=== PATIENT | female | born 1965 | race African-American/Black ===

== ENCOUNTER 2017-07-31 16:10 | Emergency (ER) | payer OTHER ==
[2017-07-31 16:28] VITALS: BP 111/72; PULSE 96; TEMP 98; BMI 43.5
[2017-07-31] MEDS ORDERED: DIPHTH,PERTUSS(ACELL),TET 0.5 ML DISP.SYRIN IM ONE (16:29)
--- NOTE | 2017-07-31 16:29 | PDOC ---
Rapid Medical Evaluation Time Seen by Provider: 07/31/17 16:27 Medical Evaluation: Allergies Allergy/AdvReac Type Severity Reaction Status Date / Time latex [Latex] Allergy Intermediate Hives Verified 07/31/17 16:26 07/31/17 16:28 I have performed a brief in-person evaluation of this patient. The patient presents with a chief complaint of: Thumb laceration Pertinent physical exam findings: Laceration to left thumb I have ordered the following: tetanus booster The patient will proceed to the ED for further evaluation. Discharge Disposition - Diagnosis Laceration - Referrals - Patient Instructions - Post Discharge Activity
--- NOTE | 2017-07-31 17:37 | PDOC ---
History of Present Illness - General Chief Complaint: Laceration Stated Complaint: LACERATION Time Seen by Provider: 07/31/17 16:27 History Source: Patient Exam Limitations: No Limitations - History of Present Illness Initial Comments: 07/31/17 17:37 51-year-old female presents to the ED with complaints of laceration to the left thumb which she sustained from a knife while trying to cut open a package. Patient states is not up-to-date and tetanus and denies history of immunosuppression including diabetes. Timing/Duration: 1-3 hours Severity: mild Associated Symptoms: reports: denies symptoms Past History - Travel Traveled outside of the country in the last 30 days: No - Past Medical History Allergies/Adverse Reactions: Allergies Allergy/AdvReac Type Severity Reaction Status Date / Time latex [Latex] Allergy Intermediate Hives Verified 07/31/17 16:26 Home Medications: Ambulatory Orders Albuterol Sulfate Inhaler - [Ventolin HFA Inhaler -] 1 - 2 inh PO Q4H PRN Budesonide/Formeterol Fumarate [SYMBICORT 160/4.5mcg -] 2 inh IH BID PRN levoFLOXacin [Levaquin -] 500 mg PO DAILY #7 tablet 05/29/16 metroNIDAZOLE [Flagyl -] 250 mg PO TID #21 tablet 05/29/16 Anemia: No Asthma: Yes Cancer: No Cardiac Disorders: No CVA: No COPD: No CHF: No Dementia: No Diabetes: No GI Disorders: Yes (Heartburn) Disorders: No HTN: No Hypercholesterolemia: Yes Liver Disease: No Seizures: No Thyroid Disease: No - Surgical History Abdominal Surgery: No Appendectomy: No Cardiac Surgery: No Cholecystectomy: Yes Lung Surgery: No Neurologic Surgery: No Orthopedic Surgery: No - Immunization History Immunization Up to Date: Yes - Suicide/Smoking/Psychosocial Hx Smoking Status: No Smoking History: Never smoked Have you smoked in the past 12 months: No Number of Cigarettes Smoked Daily: 0 Cigars Per Day: 0 Hx Alcohol Use: Yes (SOCIAL) Drug/Substance Use Hx: No Substance Use Type: None Hx Substance Use Treatment: No Patient Lives Alone: No Lives with/in: spouse/SO Review of Systems - Review of Systems Able to Perform ROS?: Yes Integumentary: Yes: See HPI *Physical Exam - Vital Signs Last Vital Signs Temp Pulse Resp BP Pulse Ox 98.0 F 96 H 20 111/72 98 07/31/17 16:27 07/31/17 16:27 07/31/17 16:27 07/31/17 16:27 07/31/17 16:27 - Physical Exam General Appearance: Yes: Nourished, Appropriately Dressed. No: Apparent Distress Integumentary: positive: Normal Color, Warm, Moist, Other (noted superficial laceration to latreal aspect of left 1 st fingertip) Neurologic: positive: Motor Strength 5/5 (FROM of left 1st digit) Procedures - Laceration/Wound Repair Left Finger Wound Length: to 2.5 cm Wound's Depth, Shape: superficial Irrigated w/ Saline: Yes Wound Repaired With: Dermabond ED Treatment Course - Medications Given in the ED: ED Medications Discontinued Medications Generic Name Dose Route Start Last Admin Trade Name Freq PRN Reason Stop Dose Admin Diphtheria/Tetanus/Acell Pertussis 0.5 ml 07/31/17 16:29 07/31/17 17:19 Boostrix - IM 07/31/17 16:30 0.5 ml .ONCE ONE Administration Medical Decision Making - Medical Decision Making 07/31/17 17:39 Pt with laceration to left 1s t digit requiring dermabond. Pt ordered for tdap *DC/Admit/Observation/Transfer Diagnosis at time of Disposition: Laceration - Discharge Dispostion Disposition: HOME Condition at time of disposition: Good - Referrals Referrals: Zia Torres MD [Primary Care Provider] - - Patient Instructions Printed Discharge Instructions: DI for Laceration Repair Additional Instructions: Keep area clean and dry covering for the next 5 days and allow glue to fall off on its own. If you develop any redness or swelling or drainage, please return to the ED as this may be a sign of infection. - Post Discharge Activity
== END 2017-07-31 17:38 | disposition home or self-care (01) ==
LOC: JERFT 16:10
PROC: 3E0234Z Introduction of Serum, Toxoid and Vaccine into Muscle, Percutaneous Approach (ICD-10-PCS; principal; 2017-07-31)
PROC: 0HQGXZZ Repair Left Hand Skin, External Approach (ICD-10-PCS; 2017-07-31)
DX: S61.012A Laceration without foreign body of left thumb without damage to nail, initial encounter (principal); W26.0XXA Contact with knife, initial encounter; Y93.89 Activity, other specified; Y92.89 Other specified places as the place of occurrence of the external cause; Y99.8 Other external cause status
CPT/HCPCS: 90715; 99281-25

== ENCOUNTER 2019-02-25 20:35 | Emergency (ER) | payer OTHER ==
[2019-02-25 21:00] VITALS: BMI 43.5
--- NOTE | 2019-02-25 21:00 | PDOC ---
Rapid Medical Evaluation Medical Evaluation: Allergies Allergy/AdvReac Type Severity Reaction Status Date / Time latex [Latex] Allergy Intermediate Hives Verified 07/31/17 16:26 I have performed a brief in-person evaluation of this patient. The patient presents with a chief complaint of: hx cholecystectomy 2011, presents with RUQ/epigastric pain x 2 days along with nausea; denies vomiting, urinary complaints, fever; states feels like gallbladder pain Pertinent physical exam findings: In NAD, +epigastric and RUQ tenderness; no CVA tenderness I have ordered the following: Labs The patient will proceed to the ED for further evaluation. 02/25/19 20:57 Discharge Disposition - Referrals Referrals: Zai Torres MD [Primary Care Provider] - - Patient Instructions - Post Discharge Activity
[2019-02-25 21:29] LABS: PH,URINE 5.5 (5.0-8.0); URINE APPEARANCE CLEAR; URINE BILIRUBIN NEGATIVE (NEGATIVE); URINE COLOR YELLOW; URINE GLUCOSE (UA) NEGATIVE (NEGATIVE); URINE KETONE TRACE (NEGATIVE); URINE LEUK ESTERASE NEGATIVE (NEGATIVE); URINE NITRITE NEGATIVE (NEGATIVE); URINE PROTEIN NEGATIVE (NEGATIVE)
[2019-02-25 21:30] LABS: BASO % 0.9 % (0-2.0); EOS % 2.2 % (0-4.5); HEMATOCRIT 39.7 % (32.4-45.2); HEMOGLOBIN 13.5 GM/dL (10.7-15.3); LYMPH % 43.8 % (8-40); MEAN CELL VOLUME 91.3 fl (80-96); MEAN PLT VOLUME 8.4 fl (7.5-11.1); MONO % 6.4 % (3.8-10.2); NEUT % 46.7 % (42.8-82.8); PLATELET COUNT 371 K/MM3 (134-434); RBC 4.35 M/mm3 (3.60-5.2); RDW 13.5 % (11.6-15.6); WHITE BLOOD COUNT 8.4 K/mm3 (4.0-10.0)
--- NOTE | 2019-02-25 21:51 | PDOC ---
Attending Attestation - Resident Resident Name: Timothy Roque - ED Attending Attestation I have performed the following: I have examined & evaluated the patient, The case was reviewed & discussed with the resident, I agree w/resident's findings & plan - HPI HPI: 02/26/19 02:51 see resident hpi - Physicial Exam PE: 02/26/19 02:51 agree with resident exam - Medical Decision Making 02/26/19 02:52 agree with resident exam
[2019-02-25 22:01] LABS: ALBUMIN 3.8 g/dl (3.4-5.0); BILIRUBIN,TOTAL 0.4 mg/dL (0.2-1); BLOOD UREA NITROGEN 8.4 mg/dL (7-18); CREATININE 0.7 mg/dL (0.55-1.3); POTASSIUM 3.9 mmol/L (3.5-5.1); TOT PROT 7.4 g/dl (6.4-8.2)
[2019-02-25] MEDS ORDERED: RANITIDINE HCL 150 MG TABLET (FP) PO ONE (23:07)
[2019-02-25] MEDS ORDERED: ONDANSETRON 4 MG TABLET PO ONE (23:07)
--- NOTE | 2019-02-25 23:08 | PDOC ---
History of Present Illness - General Chief Complaint: Pain Stated Complaint: R/O GALLSTONES Time Seen by Provider: 02/25/19 20:57 - History of Present Illness Initial Comments: 02/25/19 23:02 53 yo F with h/o cholecystectomy, asthma, who p/w epigastria and RUQ abdominal pain, nausea. Patient reports 2 days of intermittent, worsening, epigastria, spasmodic, crampy pain, with postprandial pain. + decreased PO intake. Also endorses nausea without vomiting. Also reports 3 yellow colored stools per day x 1 day. Report similar presentation of symptoms x 2011 with subsequent cholecystectomy. Denies recent travels, sick contacts, hiking, camping. Pain not improved with Tylenol. Patient denies NICHOLAS, vision change, palpitations, cough, wheezing, orthopena, PND , leg swelling/pain, F,C, CP, SOB, vaginal bleeding, pelvic pain, urinary complaints, hematuria, BPR, diarrhea, constipation, lightheadedness, weakness, sensory changes. PMHx: as noted above ROS: as noted SHx: Denies Etoh, IVDA, tobacco use Allergies: latex allergy Past History - Past Medical History Allergies/Adverse Reactions: Allergies Allergy/AdvReac Type Severity Reaction Status Date / Time latex [Latex] Allergy Intermediate Hives Verified 02/25/19 21:00 Home Medications: Ambulatory Orders Albuterol Sulfate Inhaler - [Ventolin HFA Inhaler -] 1 - 2 inh PO Q4H PRN Budesonide/Formeterol Fumarate [SYMBICORT 160/4.5mcg -] 2 inh IH BID PRN Ranitidine [Zantac -] 150 mg PO BID PRN #30 tablet MDD 2 tab 02/25/19 Amox-Tr/K Cl [Augmentin - 875Mg Tablet] 1 tab PO BID #14 tablet 02/26/19 Anemia: No Asthma: Yes Cancer: No Cardiac Disorders: No CVA: No COPD: No CHF: No Dementia: No Diabetes: No GI Disorders: Yes (Heartburn) Disorders: No HTN: No Hypercholesterolemia: Yes Liver Disease: No Seizures: No Thyroid Disease: No - Surgical History Abdominal Surgery: No Appendectomy: No Cardiac Surgery: No Cholecystectomy: Yes Lung Surgery: No Neurologic Surgery: No Orthopedic Surgery: No - Immunization History Immunization Up to Date: Yes - Suicide/Smoking/Psychosocial Hx Smoking Status: No Smoking History: Never smoked Have you smoked in the past 12 months: No Number of Cigarettes Smoked Daily: 0 Cigars Per Day: 0 Information on smoking cessation initiated: No Hx Alcohol Use: No Drug/Substance Use Hx: No Substance Use Type: None Hx Substance Use Treatment: No Review of Systems - Review of Systems Comments:: 02/25/19 23:08 GENERAL/CONSTITUTIONAL: No fever or chills. No weakness. HEAD, EYES, EARS, NOSE AND THROAT: No change in vision. No ear pain or discharge. No sore throat. CARDIOVASCULAR: No chest pain or shortness of breath RESPIRATORY: No cough, wheezing, or hemoptysis. GASTROINTESTINAL: + abdominal pain, nausea. No vomiting, constipation. GENITOURINARY: No dysuria, frequency, or change in urination. MUSCULOSKELETAL: No joint or muscle swelling or pain. No neck or back pain. SKIN: No rash NEUROLOGIC: No headache, vertigo, loss of consciousness, or change in strength/ sensation. ENDOCRINE: No increased thirst. No abnormal weight change HEMATOLOGIC/LYMPHATIC: No anemia, easy bleeding, or history of blood clots. ALLERGIC/IMMUNOLOGIC: No hives or skin allergy. *Physical Exam - Vital Signs Last Vital Signs Temp Pulse Resp BP Pulse Ox 98.3 F 96 H 18 159/97 98 02/25/19 20:58 02/25/19 20:58 02/25/19 20:58 02/25/19 20:58 02/25/19 20:58 - Physical Exam Comments: 02/25/19 23:09 GENERAL: Awake, alert, and fully oriented, in no acute distress HEAD: No signs of trauma, normocephalic, atraumatic EYES: PERRLA, EOMI, sclera anicteric, conjunctiva clear ENT: Hearing grossly normal, nares patent, oropharynx clear without exudates. Moist mucosa NECK: Normal ROM, supple, no lymphadenopathy, JVD, or masses LUNGS: No distress, speaks full sentences, clear to auscultation bilaterally HEART: Regular rate and rhythm, normal S1 and S2, no murmurs, rubs or gallops, peripheral pulses normal and equal bilaterally. ABDOMEN: + RUQ, midadbominal, and epigastric ttp. Soft, NDS, normoactive bowel sounds. No guarding, no rebound. No masses. Neg CVA ttp. EXTREMITIES : Normal inspection, Normal range of motion, no edema. No clubbing or cyanosis NEUROLOGICAL: Cranial nerves II through XII grossly intact. Normal speech, normal gait, no focal sensorimotor deficits SKIN: Warm, Dry, normal turgor, no rashes or lesions noted ED Treatment Course - LABORATORY CBC & Chemistry Diagram: 02/25/19 21:14 02/25/19 21:14 - ADDITIONAL ORDERS Additional order review: Laboratory Results 02/25/19 02/25/19 21:14 21:14 Sodium 138 Potassium 3.9 Chloride 105 Carbon Dioxide 27 Anion Gap 6 L BUN 8.4 Creatinine 0.7 Est GFR (CKD-EPI)AfAm 116.27 Est GFR (CKD-EPI)NonAf 100.32 Random Glucose 98 Calcium 9.0 Total Bilirubin 0.4 AST 14 L ALT 21 Alkaline Phosphatase 75 Total Protein 7.4 Albumin 3.8 Lipase 87 Urine Color Yellow Urine Appearance Clear Urine pH 5.5 Ur Specific [place] 1.030 Urine Protein Negative Urine Glucose (UA) Negative Urine Ketones Trace H Urine Blood Negative Urine Nitrite Negative Urine Bilirubin Negative Urine Urobilinogen 1.0 Ur Leukocyte Esterase Negative 02/25/19 21:14 RBC 4.35 MCV 91.3 MCHC 34.0 RDW 13.5 MPV 8.4 Neutrophils % 46.7 D Lymphocytes % 43.8 H Monocytes % 6.4 Eosinophils % 2.2 Basophils % 0.9 - RADIOLOGY Radiology Studies Ordered: 02/25/19 23:19 [facility] Name: [facility] DEPARTMENT OF RADIOLOGY Phys: Jewel Ruffin : 1965 Age: 53 Sex: F [facility] Acct : [id number] Loc: [address] Exam Date: 02/25/19 Status: [facility] [place] [address] Unit Number: [id number] EXAM#: TYPE/EXAM: RESULT: [id number] US/ABDOMEN US -LIMITED HISTORY PROVIDED: Right upper quadrant pain. Real time examination of the abdomen demonstrates the following: The gallbladder has been removed. There is no evidence of intra or extrahepatic biliary duct dilatation. The liver is normal in size. It is hyperechoic in texture consistent with diffuse fatty infiltration. No discrete intrahepatic masses are identified. Hepatopedal flow is documented within the main portal vein. The pancreas is poorly visualized due to overlying bowel gas. There is no evidence of hydronephrosis or acute abnormalities of the right kidney. There is no evidence of AAA. The IVC is patent. IMPRESSION: Diffuse fatty infiltration of the liver. Reported By: Gilberto Dale MD 02/25/192236 JEWEL RUFFIN Technologist: Kamilla Biswas Transcribed Date/Time: 02/25/192236 Truck Assembler: Gilberto Dale Printed Date/Time: By: 02/26/19 02:31 Patient Information: : 1965 Order Type: Preliminary Name: KINGA MORALES Sex: F Study Description: CT ABDOMEN AND PELVIS Modality: CT Location: [facility] Referring Physician: MOHSEN CHOPRA Comments: Lori Abdullahi MD wrote on Feb 26, 2019 at 02:18 AM: Referring Physician: MOHSEN CHOPRA Patient Name: AGUILAR DONATO THIS IS A PRELIMINARY REPORT FROM [facility] DATE OF SERVICE: 2019-02-26 00:53:43 IMAGES: [id number] EXAM: CT ABDOMEN AND PELVIS WITH CONTRAST 1.9 cm left ovarian cyst, advise followup pelvic ultrasound . Hysterectomy Acute diverituclitis distal descending colon. No abscess, bowel obstruction, free fluid or free air. Normal appendix. Unremarkable pancreas and kidneys Cholecystectomy 6 cm lobulated umbilical hernia containing fat CONFIDENTIALITY NOTICE: This information is intended only for the use of the recipient(s) named above. If you are not the intended recipient, or a person responsible for delivering it to the intended recipient, you are hereby notified that any disclosure, copying, distribution or use of any of the information contained in or attached to this transmission is STRICTLY PROHIBITED. If you have received this transmission in error, please immediately notify Imaging Imaging Tech and destroy the original transmission and its attachments without saving them in any manner [address] [facility] [address] [place] [address] Phone: [phone]) Fax: Email: [email or web address] Patient Information: : 1965 Order Type: Preliminary Name: KINGA MORALES Sex: F Study Description: CT ABDOMEN AND PELVIS Modality: CT Location: [facility] Referring Physician: MOHSEN CHOPRA One or more of the following dose reduction techniques were used: automated exposure control, adjustment of the mA and/or kV according to patient size, use of iterative reconstructive technique. THIS DOCUMENT HAS BEEN ELECTRONICALLY SIGNED Lori Abdullahi M.D. 02/26/2019 02:17 LOIDA Oates Please call Imaging Imaging Tech [phone] ([phone]) with questions. Lori Abdullahi MD Medical Decision Making - Medical Decision Making 02/25/19 23:10 53 yo F with h/o cholecystectomy, asthma, who p/w epigastria and RUQ abdominal pain, nausea. HR 96, vitals otherwise wnl, AF, A&OX4. Physical exam notable for epigastria and RUQ ttp. ACS/MN r/o. Will evaluate for pancreatitis, biliary dz. , colitis, appendicitis, enteritis. Will consider malabsorption disorder, gastroparesis. Will treat with anti-emetic, analgesic, control, reassess. Ed Course: Buddy Celis 02/25/19 23:20 GB U/S: IMPRESSION: Diffuse fatty infiltration of the liver. 02/25/19 23:20 Laboratory Tests 02/25/19 02/25/19 02/25/19 21:14 21:14 21:14 WBC 8.4 Hgb 13.5 Hct 39.7 Plt Count 371 Sodium 138 Potassium 3.9 BUN 8.4 Creatinine 0.7 Total Bilirubin 0.4 AST 14 L ALT 21 Alkaline Phosphatase 75 Lipase 87 Urine Color Yellow Urine Ketones Trace H Urine Nitrite Negative Ur Leukocyte Esterase Negative Patient tolerating PO intake Pain improved 02/26/19 00:37 EKG: NSR with absent SOMAN, STD. Nml interval duration and axis. Poor R wave progression. Absent Q waves. Similar to prior 02/26/19 02:32 CT AP : Acute diverituclitis distal descending colon. 02/26/19 02:34 Pt. diverticulitis treated with Augmentin Patient tolerating PO intake, 0/4 SIRS criteria, WBC 8.4, non toxic appearing Patient stable for d/c with return precautions Augmentin sent to pharmacy *DC/Admit/Observation/Transfer Diagnosis at time of Disposition: Epigastric abdominal pain - Discharge Dispostion Condition at time of disposition: Stable Decision to Admit order: No - Prescriptions Prescriptions: Ranitidine [Zantac -] 150 mg PO BID PRN #30 tablet MDD 2 tab PRN Reason: Pain - Referrals Referrals: Zia Torres MD [Primary Care Provider] - Jono Oneill MD [Staff Physician] - - Patient Instructions Printed Discharge Instructions: DI for Epigastric Pain Additional Instructions: Please return to the emergency department with any new or worsening symptoms or concerns. Please follow up with your ergonomics engineer and primary care physician within 72 hours. - Post Discharge Activity
[2019-02-25] MEDS ORDERED: ONDANSETRON *ODT* 4 MG TABLET ONE (23:13)
[2019-02-25 23:40] VITALS: BP 154/98; PULSE 90; TEMP 98
[2019-02-25] MEDS ORDERED: SODIUM CHLORIDE 1,000 ML IV STA (23:50)
[2019-02-25] MEDS ORDERED: ACETAMINOPHEN 1000 MG/100 ML VIAL (NON FORMULARY) IVPB ONE (23:52)
[2019-02-26] MEDS ORDERED: ACETAMINOPHEN INJECTION 100 ML IVPB ONE (00:11)
[2019-02-26] MEDS ORDERED: AMOX TR/POT CLAV 875MG/125MG TABLETS (FP) PO ONE (02:33)
[2019-02-26] MEDS ORDERED: AMOX TR/POT CLAV 875MG/125MG TABLETS (FP) ONE (02:51)
--- NOTE | 2019-02-26 11:26 | EKG ---
Test Reason : Blood Pressure : / mmHG Vent. Rate : 085 BPM Atrial Rate : 085 BPM P-R Int : 166 ms QRS Dur : 072 ms QT Int : 368 ms P-R-T Axes : 051 016 029 degrees QTc Int : 437 ms NORMAL SINUS RHYTHM ANTERIOR INFARCT , AGE UNDETERMINED ABNORMAL ECG WHEN COMPARED WITH ECG OF 02-JAN-2012 17:10, ANTERIOR INFARCT IS NOW PRESENT Confirmed by BETINA SHIRLEY, LINDY ([id number]) on 02/26/2019 11:25:43 AM Referred By: Confirmed By:LINDY MOFFETT MD
== END 2019-02-26 03:40 | disposition home or self-care (01) ==
LOC: JER 20:35
PROC: 3E0337Z Introduction of Electrolytic and Water Balance Substance into Peripheral Vein, Percutaneous Approach (ICD-10-PCS; principal; 2019-02-25)
PROC: 3E033NZ Introduction of Analgesics, Hypnotics, Sedatives into Peripheral Vein, Percutaneous Approach (ICD-10-PCS; 2019-02-25)
DX: K57.92 Diverticulitis of intestine, part unspecified, without perforation or abscess without bleeding (principal)
CPT/HCPCS: 36415; 74177-TC; 76705-TC; 80053; 81003; 83690; 84484; 85025; 93005; 93010; 99283-25; J0131; J7030

== ENCOUNTER 2019-03-02 12:05 | Emergency (ER) | payer OTHER ==
[2019-03-02 12:21] VITALS: BMI 43.5
--- NOTE | 2019-03-02 13:51 | PDOC ---
History of Present Illness - General Chief Complaint: Pain Stated Complaint: REVISIT / WORSEN SYMPTOMS Time Seen by Provider: 03/02/19 13:49 History Source: Patient - History of Present Illness Severity: moderate Associated Symptoms: reports: nausea/vomiting. denies: fever/chills Past History - Past Medical History Allergies/Adverse Reactions: Allergies Allergy/AdvReac Type Severity Reaction Status Date / Time latex [Latex] Allergy Intermediate Hives Verified 03/02/19 12:21 Home Medications: Ambulatory Orders Albuterol Sulfate Inhaler - [Ventolin HFA Inhaler -] 1 - 2 inh PO Q4H PRN Budesonide/Formeterol Fumarate [SYMBICORT 160/4.5mcg -] 2 inh IH BID PRN Ranitidine [Zantac -] 150 mg PO BID PRN #30 tablet MDD 2 tab 02/25/19 Amox-Tr/K Cl [Augmentin - 875Mg Tablet] 1 tab PO BID #14 tablet 02/26/19 Ciprofloxacin HCl [Cipro] 500 mg PO BID #14 tablet 03/02/19 metroNIDAZOLE [Flagyl -] 500 mg PO TID #21 tablet 03/02/19 Anemia: No Asthma: Yes Cancer: No Cardiac Disorders: No CVA: No COPD: No CHF: No Dementia: No Diabetes: No GI Disorders: Yes (Heartburn) Disorders: No HTN: No Hypercholesterolemia: Yes Liver Disease: No Seizures: No Thyroid Disease: No - Surgical History Abdominal Surgery: No Appendectomy: No Cardiac Surgery: No Cholecystectomy: Yes Lung Surgery: No Neurologic Surgery: No Orthopedic Surgery: No - Immunization History Immunization Up to Date: Yes - Psycho Social/Smoking Cessation Hx Smoking Status: No Smoking History: Never smoked Have you smoked in the past 12 months: No Number of Cigarettes Smoked Daily: 0 Cigars Per Day: 0 Hx Alcohol Use: No Drug/Substance Use Hx: No Substance Use Type: None Hx Substance Use Treatment: No Review of Systems - Review of Systems Constitutional: No: Chills, Fever ABD/GI: Yes: Nausea, Abdominal cramping. No: Blood Streaked Bowels, Constipated , Rectal Bleeding, Vomiting, Tarry Stools : No: Burning, Dysuria, Flank Pain, Hematuria *Physical Exam - Vital Signs Last Vital Signs Temp Pulse Resp BP Pulse Ox 98.7 F 83 18 143/82 99 09/22/19 12:19 03/02/19 12:19 03/02/19 12:19 03/02/19 12:19 03/02/19 12:19 - Physical Exam General Appearance: Yes: Appropriately Dressed, Mild Distress HEENT: positive: Normal Voice Neck: positive: Supple Respiratory/Chest: negative: Respiratory Distress Gastrointestinal/Abdominal: positive: Normal Bowel Sounds, Tender (diffusely, notably to epigastrium). negative: Distended, Guarding, Rebound Musculoskeletal: negative: CVA Tenderness Integumentary: positive: Dry, Warm Neurologic: positive: Fully Oriented, Alert, Normal Mood/Affect ED Treatment Course - LABORATORY CBC & Chemistry Diagram: 03/02/19 14:15 03/02/19 14:15 Medical Decision Making - Medical Decision Making 03/02/19 13:51 53 yo F, morbidly obese, asthma, s/p kalina, gastritis vs GERD, was on omeprazole in past, no recent scope, returns with ongoing diffuse abd pain with nausea and loose stools. Patient was seen for same in ED 6 days ago and diagnosed with uncomplicated sigmoid diverticulitis (to distal descending/ proximal colon)and discharged with Augmentin. Was also started on Zantac as patient was also complaining of upper abdominal epigastric pain with excessive belching that feels like her gastritis. Patient states symptoms persist. No vomiting, bloody stools, melena, fever or chills. see exam Dx w/ uncomplicated sigmoid diverticulitis 6 days ago Not improving w/ augmentin No f/c Stable w/ diffuse abd ttp on exam -pain control -IV abx -IVF -labs -?rpt CT Epigastric pain/excessive belching Similar to gastritis/GERD per pt Was on PPI in past Now on zantac w/ no relief No recent scope No melena +epigastric ttp on exam -trial of GI cocktail/reassess 03/02/19 15:45 Pt improved w/ meds. Labs unremarkable. Signed out to REBEKA Curiel pending CT. If CT neg, can m/l be discharged w/ GI cocktail and GI f/u, otherwise if CT remonstrates diverticulitis, may need admission/to discuss w/ ED attg *DC/Admit/Observation/Transfer Diagnosis at time of Disposition: Diverticulitis Ovarian cyst Qualifiers: Laterality: left Qualified Code(s): N83.202 - Unspecified ovarian cyst, left side - Discharge Dispostion Disposition: HOME Condition at time of disposition: Stable - Prescriptions Prescriptions: Ciprofloxacin HCl [Cipro] 500 mg PO BID #14 tablet metroNIDAZOLE [Flagyl -] 500 mg PO TID #21 tablet - Referrals Referrals: Zia Torres MD [Primary Care Provider] - Jono Oneill MD [Staff Physician] - Blake Strickland MD [Staff Physician] - - Patient Instructions Printed Discharge Instructions: DI for Diverticulitis, DI for Ovarian Cyst Additional Instructions: Please discontinue the Augmentin and take the new antibiotics as prescribed. Complete the entire course of antibiotics even if your symptoms improve. Follow up with OBGYN for continued monitoring of your ovarian cyst. If you develop any sudden, severe pain to your L side, fever, chills, nausea, vomiting , or diarrhea, please return to the ER immediately. - Post Discharge Activity Forms/Work/School Notes: Back to Work Discharge - Discharge Information Problems reviewed: Yes Clinical Impression/Diagnosis: Diverticulitis Ovarian cyst Qualifiers: Laterality: left Qualified Code(s): N83.202 - Unspecified ovarian cyst, left side Condition: Stable Disposition: HOME - Additional Discharge Information Prescriptions: Ciprofloxacin HCl [Cipro] 500 mg PO BID #14 tablet metroNIDAZOLE [Flagyl -] 500 mg PO TID #21 tablet - Follow up/Referral Referrals: Zia Torres MD [Primary Care Provider] - Jono Oneill MD [Staff Physician] - Blake Strickland MD [Staff Physician] - - Patient Discharge Instructions Patient Printed Discharge Instructions: DI for Diverticulitis, DI for Ovarian Cyst Additional Instructions: Please discontinue the Augmentin and take the new antibiotics as prescribed. Complete the entire course of antibiotics even if your symptoms improve. Follow up with OBGYN for continued monitoring of your ovarian cyst. If you develop any sudden, severe pain to your L side, fever, chills, nausea, vomiting , or diarrhea, please return to the ER immediately. - Post Discharge Activity Work/Back to School Note: Back to Work
[2019-03-02] MEDS ORDERED: CIPROFLOXACIN 400 MG/D5W 400 MG/200 ML IVPB IVPB ONE (13:52)
[2019-03-02] MEDS ORDERED: morphine CARPU-JECT 4 MG/1 ML DISP.SYRIN IVPUSH ONE (13:53)
[2019-03-02] MEDS ORDERED: ONDANSETRON 4 MG/2 ML VIAL IVPUSH ONE (13:54)
[2019-03-02] MEDS ORDERED: FAMOTIDINE 20 MG/50 ML IVPB 20 MG/50 ML MG IVPB ONE ×2 (13:54→14:04)
[2019-03-02] MEDS ORDERED: SODIUM CHLORIDE 1,000 ML IV STA (13:55)
[2019-03-02] MEDS ORDERED: ONDANSETRON 4 MG/2 ML VIAL ONE (14:04)
[2019-03-02] MEDS ORDERED: morphine SULFATE 4 MG/ML VIAL ONE (14:04)
[2019-03-02 14:42] LABS: PH,URINE 5.5 (5.0-8.0); URINE APPEARANCE CLEAR; URINE BILIRUBIN NEGATIVE (NEGATIVE); URINE COLOR YELLOW; URINE GLUCOSE (UA) NEGATIVE (NEGATIVE); URINE KETONE TRACE (NEGATIVE); URINE LEUK ESTERASE NEGATIVE (NEGATIVE); URINE NITRITE NEGATIVE (NEGATIVE); URINE PROTEIN NEGATIVE (NEGATIVE); URINE UROBILINOGEN 0.2 mg/dL (0.2-1.0)
[2019-03-02 14:44] LABS: BASO % 0.5 % (0-2.0); EOS % 2.1 % (0-4.5); HEMATOCRIT 42.8 % (32.4-45.2); HEMOGLOBIN 14.7 GM/dL (10.7-15.3); LYMPH % 46.8 % (8-40); MCH 31.3 pg (25.7-33.7); MCHC 34.4 g/dl (32.0-36.0); MEAN CELL VOLUME 90.9 fl (80-96); MEAN PLT VOLUME 8.5 fl (7.5-11.1); MONO % 7.5 % (3.8-10.2); NEUT % 43.1 % (42.8-82.8); PLATELET COUNT 382 K/MM3 (134-434); RBC 4.71 M/mm3 (3.60-5.2); RDW 13.8 % (11.6-15.6); WHITE BLOOD COUNT 7.1 K/mm3 (4.0-10.0)
[2019-03-02 14:59] LABS: ALBUMIN 3.8 g/dl (3.4-5.0); BILIRUBIN,TOTAL 0.4 mg/dL (0.2-1); BLOOD UREA NITROGEN 6.2 mg/dL (7-18); CALCIUM 9.5 mg/dL (8.5-10.1); CREATININE 0.8 mg/dL (0.55-1.3); POTASSIUM 5.1 mmol/L (3.5-5.1); TOT PROT 7.6 g/dl (6.4-8.2)
[2019-03-02 15:46] VITALS: PULSE 80; TEMP 97.8
--- NOTE | 2019-03-02 16:33 | PDOC ---
*Physical Exam - Vital Signs Last Vital Signs Temp Pulse Resp BP Pulse Ox 97.8 F 80 18 147/81 97 03/02/19 15:44 03/02/19 15:44 03/02/19 12:19 03/02/19 15:44 03/02/19 15:44 - Physical Exam Comments: 03/02/19 16:33 Sign-out received from outgoing ER provider Claire. Pt interviewed and examined. Ancillary studies reviewed. Awaiting CT results. 03/02/19 21:27 CT results: mild acute diverticulitis of distal descending colon again noted. 3.3cm L ovarian cyst, increased in size from prior exam. Will change abx from Augmentin to cipro/flagyl. Patient to f/u with OB for monitoring of ovarian cyst. Advised patient to take medication as prescribed and follow up with GI and OB within the next week. Advised patient of signs and symptoms for return to ED. Patient verbalized understanding and agrees to plan. ED Treatment Course - LABORATORY CBC & Chemistry Diagram: 03/02/19 14:15 03/02/19 14:15 - ADDITIONAL ORDERS Additional order review: Laboratory Results 03/02/19 03/02/19 14:30 14:15 Sodium 138 Potassium 5.1 Chloride 104 Carbon Dioxide 27 Anion Gap 8 BUN 6.2 L Creatinine 0.8 Est GFR (CKD-EPI)AfAm 98.93 Est GFR (CKD-EPI)NonAf 85.36 Random Glucose 88 Calcium 9.5 Total Bilirubin 0.4 AST 36 ALT 30 Alkaline Phosphatase 66 Total Protein 7.6 Albumin 3.8 Lipase 65 L Urine Color Yellow Urine Appearance Clear Urine pH 5.5 Ur Specific [place] 1.025 Urine Protein Negative Urine Glucose (UA) Negative Urine Ketones Trace H Urine Blood Negative Urine Nitrite Negative Urine Bilirubin Negative Urine Urobilinogen 0.2 Ur Leukocyte Esterase Negative 03/02/19 14:15 RBC 4.71 MCV 90.9 MCHC 34.4 RDW 13.8 MPV 8.5 Neutrophils % 43.1 Lymphocytes % 46.8 H Monocytes % 7.5 Eosinophils % 2.1 Basophils % 0.5 - Medications Given in the ED: ED Medications Discontinued Medications Generic Name Dose Route Start Last Admin Trade Name Freq PRN Reason Stop Dose Admin Ciprofloxacin/Dextrose 400 mg in 200 mls @ 200 mls/hr 03/02/19 13:52 15:29 Cipro 400 Mg Premix Ivpb (Restricted To Id) IVPB 03/02/19 14:51 200 mls/hr ONCE ONE Administration Metronidazole 500 mg in 100 mls @ 100 mls/hr 03/02/19 13:53 03/02/19 15:08 Flagyl 500mg Premixed Ivpb - IVPB 03/02/19 14:52 100 mls/hr ONCE ONE Administration Famotidine/Sodium Chloride 20 mg in 50 mls @ 100 mls/hr 03/02/19 13:54 14:33 Pepcid 20 Mg Premixed Ivpb - IVPB 03/02/19 14:23 100 mls/hr ONCE ONE Administration Sodium Chloride 1,000 mls @ 1,000 mls/hr 03/02/19 13:55 03/02/19 14:33 Normal Saline - IV 03/02/19 14:54 1,000 mls/hr ASDIR STA Administration Morphine Sulfate 4 mg 03/02/19 13:53 03/02/19 14:33 Morphine Injection - IVPUSH 03/02/19 13:54 4 mg ONCE ONE Administration Ondansetron HCl 4 mg 03/02/19 13:54 03/02/19 14:33 Zofran Injection IVPUSH 03/02/19 13:55 4 mg ONCE ONE Administration *DC/Admit/Observation/Transfer Diagnosis at time of Disposition: Diverticulitis Ovarian cyst Qualifiers: Laterality: left Qualified Code(s): N83.202 - Unspecified ovarian cyst, left side - Discharge Dispostion Disposition: HOME Condition at time of disposition: Stable Decision to Admit order: No - Prescriptions Prescriptions: Ciprofloxacin HCl [Cipro] 500 mg PO BID #14 tablet metroNIDAZOLE [Flagyl -] 500 mg PO TID #21 tablet - Referrals Referrals: Zia Torres MD [Primary Care Provider] - Jono Oneill MD [Staff Physician] - Blake Strickland MD [Staff Physician] - - Patient Instructions Printed Discharge Instructions: DI for Diverticulitis, DI for Ovarian Cyst Additional Instructions: Please discontinue the Augmentin and take the new antibiotics as prescribed. Complete the entire course of antibiotics even if your symptoms improve. Follow up with OBGYN for continued monitoring of your ovarian cyst. If you develop any sudden, severe pain to your L side, fever, chills, nausea, vomiting , or diarrhea, please return to the ER immediately. - Post Discharge Activity Forms/Work/School Notes: Back to Work
[2019-03-02 21:35] VITALS: BP 157/84
== END 2019-03-02 22:02 | disposition home or self-care (01) ==
LOC: JER 12:05
PROC: 3E03329 Introduction of Other Anti-infective into Peripheral Vein, Percutaneous Approach (ICD-10-PCS; principal; 2019-03-02)
PROC: 3E03329 Introduction of Other Anti-infective into Peripheral Vein, Percutaneous Approach (ICD-10-PCS; 2019-03-02)
PROC: 3E033GC Introduction of Other Therapeutic Substance into Peripheral Vein, Percutaneous Approach (ICD-10-PCS; 2019-03-02)
PROC: 3E033NZ Introduction of Analgesics, Hypnotics, Sedatives into Peripheral Vein, Percutaneous Approach (ICD-10-PCS; 2019-03-02)
PROC: 3E033GC Introduction of Other Therapeutic Substance into Peripheral Vein, Percutaneous Approach (ICD-10-PCS; 2019-03-02)
DX: K57.92 Diverticulitis of intestine, part unspecified, without perforation or abscess without bleeding (principal); N83.202 Unspecified ovarian cyst, left side
CPT/HCPCS: 36415; 74177-TC; 80053; 81003; 83690; 85025; 99284-25; J7030

== ENCOUNTER 2019-06-29 12:16 | Emergency (ER) | payer OTHER ==
[2019-06-29 12:23] VITALS: BMI 41.1
--- NOTE | 2019-06-29 13:17 | PDOC ---
History of Present Illness - General Chief Complaint: Syncope/Near Syncope Stated Complaint: SYNCOPE History Source: Patient Exam Limitations: No Limitations - History of Present Illness Initial Comments: 06/29/19 13:55 53 yo female pmh hysterectomy, asthma presents to the ED after pre syncopal episode. Pt states while taking a shower, she became suddenly lightheaded, dizzy and weak, fell to the floor and was able to ambulate. Pt denies CP/ palpitations or SOB prior to or after the event, denies LOC, NICHOLAS, confusion and did not hit her head and has no complaints of pain. Denies recent illness, recent travel, F/C/N/V, changes in vision, weakness or sensory changes on 1 side. Pt states the symptoms lasted 5 min and resolved. Past History - Past Medical History Allergies/Adverse Reactions: Allergies Allergy/AdvReac Type Severity Reaction Status Date / Time latex [Latex] Allergy Intermediate Hives Verified 06/29/19 12:22 Home Medications: Ambulatory Orders Albuterol Sulfate Inhaler - [Ventolin HFA Inhaler -] 1 - 2 inh PO Q4H PRN Budesonide/Formeterol Fumarate [SYMBICORT 160/4.5mcg -] 2 inh IH BID PRN Pantoprazole Sodium [Protonix] 40 mg PO DAILY 06/29/19 Anemia: No Asthma: Yes Cancer: No Cardiac Disorders: No CVA: No COPD: No CHF: No Dementia: No Diabetes: No GI Disorders: Yes (Heartburn) Disorders: No HTN: No Hypercholesterolemia: Yes Liver Disease: No Seizures: No Thyroid Disease: No - Surgical History Abdominal Surgery: No Appendectomy: No Cardiac Surgery: No Cholecystectomy: Yes Lung Surgery: No Neurologic Surgery: No Orthopedic Surgery: No - Immunization History Immunization Up to Date: Yes - Psycho Social/Smoking Cessation Hx Smoking Status: No Smoking History: Never smoked Have you smoked in the past 12 months: No Number of Cigarettes Smoked Daily: 0 Cigars Per Day: 0 Hx Alcohol Use: No Drug/Substance Use Hx: No Substance Use Type: None Hx Substance Use Treatment: No Review of Systems - Review of Systems Constitutional: No: Chills, Fever HEENTM: No: Eye Pain, Blurred Vision, Double Vision Respiratory: No: Shortness of Breath Cardiac (ROS): No: Chest Pain ABD/GI: No: Constipated, Diarrhea, Nausea, Vomiting : No: Burning, Dysuria, Frequency, Flank Pain, Incontinence Musculoskeletal: No: Back Pain Integumentary: No: Bruising Neurological: Yes: Headache, Dizziness, Other (presyncope). No: Numbness, Paresthesia, Weakness, Unsteady Gait, Ataxia *Physical Exam - Vital Signs Last Vital Signs Temp Pulse Resp BP Pulse Ox 97.8 F 91 H 18 143/77 99 06/29/19 12:20 06/29/19 12:20 06/29/19 12:20 06/29/19 12:20 06/29/19 12:20 - Physical Exam General Appearance: Yes: Nourished, Appropriately Dressed. No: Apparent Distress HEENT: positive: EOMI, WALTER Neck: positive: Supple. negative: Carotid bruit Respiratory/Chest: positive: Lungs Clear, Normal Breath Sounds. negative: Respiratory Distress, Accessory Muscle Use, Rapid RR, Crackles, Rales, Rhonchi, Stridor, Wheezing Cardiovascular: positive: Regular Rhythm, Regular Rate, S1, S2. negative: Edema , JVD, Murmur Vascular Pulses: Dorsalis-Pedis (R): 4+, Doralis-Pedis (L): 4+ Gastrointestinal/Abdominal: positive: Flat, Soft. negative: Pulsatile Mass, Protuberent, Distended, Guarding, Rebound, Tenderness Musculoskeletal: negative: CVA Tenderness Extremity: positive: Normal Capillary Refill, Normal Inspection, Normal Range of Motion Integumentary: positive: Normal Color, Dry, Warm Neurologic: positive: annual greenhouse manager II-XII NML intact, Fully Oriented, Alert, Normal Mood/ Affect, Normal Response, Motor Strength 5/5. negative: Facial Droop, Numbness, Sensory Deficit, Confused, Disoriented ED Treatment Course - LABORATORY CBC & Chemistry Diagram: 06/29/19 14:54 06/29/19 14:54 Medical Decision Making - Medical Decision Making 06/29/19 14:33 53 yo female pmh hysterectomy, asthma presents to the ED after pre syncopal episode. Pt states while taking a shower, she became suddenly lightheaded, dizzy and weak, fell to the floor and was able to ambulate. Pt denies CP/ palpitations or SOB prior to or after the event, denies LOC, NICHOLAS, confusion and did not hit her head and has no complaints of pain. Denies recent illness, recent travel, F/C/N/V, changes in vision, weakness or sensory changes on 1 side. Pt states the symptoms lasted 5 min and resolved. vitals WNL Will do labs, EKG, CXR fluids pt complains of mild NICHOLAS at this time, given tylenol. Neuro exam normal, see PE 06/29/19 16:37 Labs WNL including trop, H/H and electrolytes, CXR no acute path, EKG NSR without signs of ischemia or arrhythmia will repeat trop and likely DC home with follow up 06/29/19 20:[address] neg, states NICHOLAS has improved and denies neurologic deficits Repeat trop neg Shared decision making with pt with regards to admission, states she feels much better, no longer has feelings of passing out and will follow up with Primary Doctor and [employer] for out pt work up. Strict return precautions given Discharge - Discharge Information Problems reviewed: Yes Clinical Impression/Diagnosis: Pre-syncope Condition: Stable Disposition: HOME - Admission No - Follow up/Referral Referrals: Zia Torres MD [Primary Care Provider] - Yariel Short MD [Staff Physician] - - Patient Discharge Instructions Patient Printed Discharge Instructions: DI for Syncope in Adults (Fainting) Additional Instructions: Your blood work, EKG and head CT were normal. Please follow up with your Primary doctor within the next 48 hours for feelings of loss of consciousness and make an appointment to see the [employer] referred to you. Return to the ER for new or concerning symptoms including but not limited to: chest pain, headaches, loss of consciousness, fevers, weakness. Thank you - Post Discharge Activity
[2019-06-29] MEDS ORDERED: SODIUM CHLORIDE 1,000 ML IV STA (14:21)
[2019-06-29] MEDS ORDERED: ACETAMINOPHEN 325 MG TABLET (FP) PO ONE (14:32)
[2019-06-29] MEDS ORDERED: ACETAMINOPHEN 325 MG TABLET (FP) ONE (14:40)
[2019-06-29 15:33] LABS: BASO % 0.7 % (0-2.0); EOS % 1.2 % (0-4.5); HEMOGLOBIN 15.1 GM/dL (10.7-15.3); LYMPH % 39.3 % (8-40); MCH 31.1 pg (25.7-33.7); MCHC 34.4 g/dl (32.0-36.0); MEAN CELL VOLUME 90.4 fl (80-96); MEAN PLT VOLUME 8.8 fl (7.5-11.1); MONO % 8.7 % (3.8-10.2); NEUT % 50.1 % (42.8-82.8); PLATELET COUNT 356 K/MM3 (134-434); RBC 4.86 M/mm3 (3.60-5.2); RDW 13.8 % (11.6-15.6); WHITE BLOOD COUNT 6.2 K/mm3 (4.0-10.0)
[2019-06-29 15:58] LABS: INR 1.07 (0.83-1.09); PROTHROMBIN TIME (PATIENT) 12.6 SEC (9.7-13.0)
[2019-06-29 16:03] LABS: ALBUMIN 4.3 g/dl (3.4-5.0); ALK PHOS 76 U/L (45-117); ANION GAP 6 MMOL/L (8-16); BILIRUBIN,TOTAL 0.4 mg/dL (0.2-1); BLOOD UREA NITROGEN 11.5 mg/dL (7-18); CALCIUM 9.3 mg/dL (8.5-10.1); CHLORIDE 106 mmol/L (98-107); CO2 27 mmol/L (21-32); CREATININE 0.8 mg/dL (0.55-1.3); GLUCOSE,RANDOM 81 mg/dL (74-106); POTASSIUM 4.8 mmol/L (3.5-5.1); SGOT/AST 16 U/L (15-37); SGPT/ALT 24 U/L (13-61); SODIUM 140 mmol/L (136-145); TOT PROT 8.1 g/dl (6.4-8.2)
[2019-06-29] MEDS ORDERED: METOCLOPRAMIDE HCL INJECTION 10 MG/2 ML VIAL IVPUSH ONE (17:04)
[2019-06-29] MEDS ORDERED: METOCLOPRAMIDE HCL INJECTION 10 MG/2 ML VIAL ONE (17:40)
[2019-06-29 21:04] VITALS: BP 124/78; PULSE 93; TEMP 98.1
--- NOTE | 2019-06-30 10:02 | EKG ---
Test Reason : Blood Pressure : / mmHG Vent. Rate : 079 BPM Atrial Rate : 079 BPM P-R Int : 152 ms QRS Dur : 070 ms QT Int : 362 ms P-R-T Axes : 062 019 036 degrees QTc Int : 415 ms NORMAL SINUS RHYTHM NORMAL ECG WHEN COMPARED WITH ECG OF 26-FEB-2019 00:14, NO SIGNIFICANT CHANGE WAS FOUND Confirmed by JENN ARAGON MD ([id number]) on 06/30/2019 10:01:50 AM Referred By: Confirmed By:JENN ARAGON MD
--- NOTE | 2019-07-03 14:30 | PDOC ---
Documentation entered by Dennis Darling SCRIBE, acting as scribe for Krishan Langston MD. Krishan Langston MD: This documentation has been prepared by the Phong damon Daniel, SCRIBE, under my direction and personally reviewed by me in its entirety. I confirm that the documentation accurately reflects all work, treatment, procedures, and medical decision making performed by me. Attending Attestation - Resident Resident Name: Jan Shay - ED Attending Attestation I have performed the following: I have examined & evaluated the patient, The case was reviewed & discussed with the resident, I agree w/resident's findings & plan, Exceptions are as noted - HPI HPI: 06/29/19 14:24 The patient is a 53 year old female with a past medical history of asthma here today for evaluation of a presyncopal episode. The patient reports that she was taking a shower today when she suddenly felt weak and lightheaded which caused her to fall. She denies any head strike or loss of consciousness, states she landed on her knees. She states that she was able to stand and walk to her bedroom after this and that most of her symptoms resolved but still feels slightly weak.She denies any prior episodes. Denies preceding palpitations, CP, diaphoresis, SOB. Denies recent travel, calf pain, or immobility. Reports she is menopausal. Patient denies headache, stiff neck, focal weakness/numbness. Denies fever, chills. Denies nausea, vomiting, diarrhea, abdominal pain. Allergies: latex PCP: Zia Torres - Physicial Exam PE: 06/29/19 14:24 GENERAL: Awake, alert, and fully oriented, in no acute distress HEAD: No signs of trauma EYES: PERRLA, EOMI, sclera anicteric, conjunctiva clear ENT: Nares patent, oropharynx clear without exudates. Moist mucosa NECK: Normal ROM, supple, no lymphadenopathy, JVD, or masses LUNGS: Breath sounds equal, clear to auscultation bilaterally. No wheezes, and no crackles HEART: Regular rate and rhythm, normal S1 and S2, no murmurs, rubs or gallops ABDOMEN: Soft, nontender, normoactive bowel sounds. No guarding, no rebound. No masses EXTREMITIES: Normal range of motion, no edema. No clubbing or cyanosis. No cords , erythema, or tenderness BACK: No midline spinal tenderness in cervical/thoracic/lumbar region NEUROLOGICAL: Normal speech, cranial nerves intact, 5/5 strength in all 4 extremities, normal sensation to light touch in all 4 extremities, normal cerebellar exam, normal gait, normal tone SKIN: Warm, Dry, normal turgor, no rashes or lesions noted. - Medical Decision Making 53yo F presents to the ED with pre-syncope. Vitals wnl. Exam wnl EKG non ischemic, with no evidence of arrhythmia such as prolonged QT, WPW, etc Likely dehydration vs orthostasis vs vasovagal syncope Labs including tropx2 negative CTH given lightheadedness performed to eval for any neuro pathology - negative CXR unremarakble Pt feels at baseline in ED, ambulating with no sxs, no dizziness Pt offered tele observation for pre-syncope but prefers DC. Return precautions discussed at [facility] She will f/u with her PMD She is well appearing and clinically stable for DC home I discussed the physical exam findings, ancillary test results and final diagnoses with the patient. I answered all of the patient's questions. The patient was satisfied with the care received and felt comfortable with the discharge plan and treatment plan. The patient will call their primary care physician within 24 hours to arrange follow-up and will return to the Emergency Department with any new, persistent or worsening symptoms.
== END 2019-06-29 21:10 | disposition home or self-care (01) ==
LOC: JER 12:16
PROC: 3E0337Z Introduction of Electrolytic and Water Balance Substance into Peripheral Vein, Percutaneous Approach (ICD-10-PCS; principal; 2019-06-29)
PROC: 3E033GC Introduction of Other Therapeutic Substance into Peripheral Vein, Percutaneous Approach (ICD-10-PCS; 2019-06-29)
DX: R55 Syncope and collapse (principal); J45.909 Unspecified asthma, uncomplicated; E78.00 Pure hypercholesterolemia, unspecified; W18.2XXA Fall in (into) shower or empty bathtub, initial encounter; Y93.E1 Activity, personal bathing and showering; Y92.031 Bathroom in apartment as the place of occurrence of the external cause; Y99.8 Other external cause status; Z91.040 Latex allergy status
CPT/HCPCS: 36415; 70450-TC; 71045-TC-FY; 80053; 82550; 82962; 84484; 85025; 85610; 93005; 93010; 99285-25; J7030